=== PATIENT | female | born 1960 | race Caucasian/White ===

== ENCOUNTER → 2017-08-04 | Emergency (ER) | payer OTHER ==
[~2017-08-04] VITALS: Ht 162.6 cm; Wt 70.3 kg
[~2017-08-04] MED LIST: LEVAQUIN750 MG PO; LEVOXYL125 MCG PO; PROTONIX40 M1; RANITIDINE HCL300 M1; SYNTHROID125 MCG PO; SYNTHROID50 MCG PO; TESSALON PERLE100 M1 PO; XOPENEX0.63 MG/3 IH
== END | disposition home or self-care (01) ==
LOC: ER 09:36
DX: M25.511 Pain in right shoulder (principal)

== ENCOUNTER 2024-06-18 11:15 | Inpatient (IN) | payer OTHER ==
[~2024-06-18] VITALS: Ht 162.6 cm; Wt 73.9 kg
[2024-06-18] MEDS ORDERED: PEPCID40 MG PO (13:07)
[2024-06-18] MEDS ORDERED: SYNTHROID112 MCG PO (13:07)
[2024-06-18] MEDS ORDERED: DICY20TA PO (13:08)
[2024-06-18 13:13] VITALS: BP 124/83
[2024-06-25] MEDS ORDERED: METRONIDAZOLE/SODIUM CHLORIDE 500 MG/100 ML PIGGYBACK IV ONE (09:30)
[2024-06-25] MEDS ORDERED: CEFTRIAXONE SODIUM 2,000 MG VIAL IV ONE (09:30)
[2024-06-25] MEDS ORDERED: BUPIVACAINE HCL 30 ML VIAL IV ONE (09:45)
[2024-06-25] MEDS ORDERED: TRAMADOL HCL 50 MG TABLET PO PRN (11:45)
[2024-06-25] MEDS ORDERED: RINGERS SOLUTION,LACTATED 1,000 ML IV SCH (11:45)
[2024-06-25] MEDS ORDERED: MORPHINE SULFATE 4 MG/ML VIAL IV PRN (11:45)
[2024-06-25] MEDS ORDERED: ONDANSETRON HCL 2 MG/ML VIAL IV PRN (11:45)
[2024-06-25] MEDS ORDERED: ACETAMINOPHEN 500 MG GEL..CAP PO SCH (12:00)
[2024-06-25] MEDS ORDERED: MORPHINE SULFATE 4 MG/ML VIAL IV ONE ×3 (12:45→14:00)
[2024-06-25] MEDS ORDERED: SIMETHICONE 125 MG CAPSULE PO SCH (13:00)
[2024-06-25 13:23] LABS: HEMATOCRIT 37.2 % (36.0-45.00); HEMOGLOBIN 12.7 g/dL (12.0-15.00); MEAN CELL VOLUME 89.8 fL (80.00-100.00); MEAN CORPUSCULAR HEMOGLOBIN 30.5 pg (27.00-32.0); PLATELET COUNT 330 K/uL (150-450); RED BLOOD COUNT 4.15 M/uL (4.00-6.00); RED CELL DISTRIBUTION WIDTH 14.1 % (11.5-14.5)
[2024-06-25 14:38] LABS: ALBUMIN 3.5 gm/dL (3.4-5.0); CALCIUM 8.8 mg/dL (8.5-10.1); CREATININE SERUM 0.82 mg/dL (0.55-1.02); GFR 69.96; MAGNESIUM 1.8 mg/dL (1.8-2.4); PHOSPHOROUS 3.1 mg/dL (2.5-4.9); POTASSIUM 3.4 mEq/L (3.5-5.1)
[2024-06-25 16:00] VITALS: BP 130/83; O2SAT 98
[2024-06-25] MEDS ORDERED: GABAPENTIN 300 MG CAPSULE PO SCH (17:00)
[2024-06-25] MEDS ORDERED: POLYETHYLENE GLYCOL 3350 17 GM BLIST.PACK PO SCH (17:00)
[2024-06-25] MEDS ORDERED: FAMOTIDINE/PF 20 MG/2 ML VIAL IV PUSH SCH (21:00)
[2024-06-26 01:54] VITALS: BP 138/76; O2SAT 90
[2024-06-26 05:17] LABS: HEMATOCRIT 40.1 % (36.0-45.00); HEMOGLOBIN 13.6 g/dL (12.0-15.00); MEAN CELL VOLUME 89.4 fL (80.00-100.00); MEAN CORPUSCULAR HEMOGLOBIN 30.4 pg (27.00-32.0); PLATELET COUNT 370 K/uL (150-450); RED BLOOD COUNT 4.49 M/uL (4.00-6.00); RED CELL DISTRIBUTION WIDTH 13.6 % (11.5-14.5)
[2024-06-26 05:36] LABS: ALBUMIN 3.7 gm/dL (3.4-5.0); CALCIUM 8.8 mg/dL (8.5-10.1); CREATININE SERUM 0.75 mg/dL (0.55-1.02); GFR 77.55; MAGNESIUM 1.8 mg/dL (1.8-2.4); PHOSPHOROUS 3.6 mg/dL (2.5-4.9); POTASSIUM 3.41 mEq/L (3.5-5.1)
[2024-06-26] MEDS ORDERED: LEVOTHYROXINE SODIUM 112 MCG TABLET PO SCH (06:00)
[2024-06-26 08:00] VITALS: BP 121/75; O2SAT 95
[2024-06-26] MEDS ORDERED: MAGNESIUM CHLORIDE 70 MG TABLET.DR PO SCH (09:00)
[2024-06-26] MEDS ORDERED: LACTOBACILLUS ACIDOPHILUS 1 CAP CAP PO SCH (09:00)
[2024-06-26] MEDS ORDERED: MAGNESIUM SULFATE IN WATER 2 GM/50 ML PIGGYBAG IV NR (10:00)
[2024-06-26] MEDS ORDERED: POTASSIUM PHOS,M-BASIC-D-BASIC 15 MM in 0.9 % SODIUM CHLORIDE 250 ML IV ONE (12:00)
[2024-06-26 16:13] VITALS: BP 144/77; O2SAT 95
[2024-06-26] MEDS ORDERED: ENOXAPARIN SODIUM 40 MG/0.4 ML SYRINGE SUBCUTANEO SCH (17:00)
[2024-06-27 07:45] LABS: ALBUMIN 3.5 gm/dL (3.4-5.0); CALCIUM 8.9 mg/dL (8.5-10.1); CREATININE SERUM 0.81 mg/dL (0.55-1.02); GFR 70.96; MAGNESIUM 2.4 mg/dL (1.8-2.4); POTASSIUM 4.19 mEq/L (3.5-5.1)
[2024-06-27 08:00] VITALS: BP 114/79; O2SAT 95
[2024-06-27] MEDS ORDERED: NAPH,MB-DB/K PH,MBDB 1 PKT PACKET PO SCH (13:00)
[2024-06-27 16:00] VITALS: BP 143/82; O2SAT 99
== END 2024-06-27 16:49 | disposition home or self-care (01) | DRG 331 ==
LOC: SURH 06-25 05:55 → O/R 06-25 05:55 → SURH 06-25 09:00
PROVIDERS: ADMIT Colon & Rectal Surgery; ATTEND Colon & Rectal Surgery
PROC: 0DBP4ZZ Excision of Rectum, Percutaneous Endoscopic Approach (ICD-10-PCS; 2024-06-25)
PROC: 0DJD8ZZ Inspection of Lower Intestinal Tract, Via Natural or Artificial Opening Endoscopic (ICD-10-PCS; 2024-06-25)
PROC: 0WQF4ZZ Repair Abdominal Wall, Percutaneous Endoscopic Approach (ICD-10-PCS; 2024-06-25)
PROC: 0DTN4ZZ Resection of Sigmoid Colon, Percutaneous Endoscopic Approach (ICD-10-PCS; principal; 2024-06-25 09:00)
DX: K57.20 Diverticulitis of large intestine with perforation and abscess without bleeding (principal); K43.9 Ventral hernia without obstruction or gangrene

== ENCOUNTER → 2024-09-11 | Emergency (ER) | payer OTHER ==
[~2024-09-11] MED LIST changes: +DICY20TA PO; +PEPCID40 MG PO; +SYNTHROID112 MCG PO
== END | disposition home or self-care (01) ==
LOC: ER 11:46
DX: R42 Dizziness and giddiness (principal); Z88.8 Allergy status to other drugs, medicaments and biological substances